=== PATIENT | female | born 1975 | race Caucasian/White ===

== ENCOUNTER 2016-04-17 12:42 | Emergency (ER) | payer BC ==
[~2016-04-17 12:42] MED LIST: AMOXICILLIN875 MG PO; CARVEDILOL3.125 MG PO; CHANTIX 1MG1 MG PO; DIFLUCAN150 M1 PO; FLAGYL500 M1 PO; GLUCOPHAGE; GOOD NEIGHBOR200 M1 PO; GOOD NEIGHBOR500 M2 PO; HYDROCHLOROTHIA1 T15 PO; LISINOPRIL/HCTZ1 TA2 PO; NORCO 325 MG-51 TAB PO; NORVASC 5MG5 MG/TAB PO; OXYCODONE5 M1 PO; PERCOCET 325 MG1 TA2 PO; SEPTRA DS 8001 TAB PO; ULTRAM50 M1 PO
[2016-04-17] MEDS ORDERED: CARVEDILOL12.5 MG PO (14:10)
[2016-04-17] MEDS ORDERED: AMLODIPINE BESY10 MG PO (14:11)
[2016-04-17] MEDS ORDERED: GLUCOPHAGE1000 MG PO (14:11)
[2016-04-17] MEDS ORDERED: VALIUM5 M1 PO (15:39)
[2016-04-17 15:43] VITALS: BP 123/62
== END 2016-04-17 15:55 | disposition home or self-care (01) ==
LOC: ED 12:42
DX: I10 Essential (primary) hypertension (principal); R42 Dizziness and giddiness; F17.210 Nicotine dependence, cigarettes, uncomplicated

== ENCOUNTER → 2016-10-01 | Outpatient (CLI) | payer BC ==
[~2016-10-01] MED LIST changes: +AMLODIPINE BESY10 MG PO; +CARVEDILOL12.5 MG PO; +GLUCOPHAGE1000 MG PO; +LIDOCAINE 5%35.44 GM REC; +LINZESS145 MCG PO; +NEURONTIN300 MG/CAP; +OMEPRAZOLE D/R20 MG PO; +SIMVASTATIN20 M1 PO; +TRAMADOL 50 MG TAB PO; +VALIUM5 M1 PO; +VICTOZA 3-0.6 MG/0.1 SQ
== END ==
LOC: RAD 11:15
DX: R10.32 Left lower quadrant pain (principal); R10.31 Right lower quadrant pain; M46.96 Unspecified inflammatory spondylopathy, lumbar region; M16.0 Bilateral primary osteoarthritis of hip; M51.27 Other intervertebral disc displacement, lumbosacral region

== ENCOUNTER → 2017-10-27 | Outpatient (CLI) | payer BC ==
[2016-12-09 13:02] VITALS: BP 117/80
[2017-10-27 16:54] LABS: BASO # 0.1 (0.02-0.10); EOS # 0.5 (0.04-0.40); EOS % 5.6 % (1.0-5.0); HEMATOCRIT 41.7 % (37.0-47.0); HEMOGLOBIN 14.3 g/dL (12.5-16.0); LYMPH# 3.2 (1.50-4.00); MEAN CELL VOLUME 86 fl (78-100); MEAN CORPUSCULAR HEMOGLOBIN 29 pg (27-31); MEAN CORPUSCULAR HGB CONC 34 g/dL (33-37); MEAN PLATELET VOLUME 10.2 fl (7.4-10.4); MONO # 0.7 (0.20-0.80); NEU # 4.1 (1.40-6.50); PLATELET COUNT 264 K/mm3 (130-400); RED BLOOD COUNT 4.87 M/mm3 (4.10-5.30); RED CELL DISTRIBUTION WIDTH 13.6 % (11.5-14.5); WHITE BLOOD COUNT 8.5 K/mm3 (4.8-10.8)
[2017-10-27 17:00] LABS: ALBUMIN 3.7 g/dL (3.5-5.0); BUN/CREATININE RATIO 27.9 (6.0-26.0); CALCIUM 8.9 mg/dL (8.4-10.2); POTASSIUM 3.4 mmol/L (3.6-5.0); TOTAL BILIRUBIN 0.2 mg/dL (0.2-1.3); TOTAL PROTEIN 7.4 g/dL (6.3-8.2)
== END ==
LOC: LAB 16:33
PROVIDERS: Nurse Practitioner Family
DX: R42 Dizziness and giddiness (principal); R53.83 Other fatigue

== ENCOUNTER 2018-02-11 12:19 | Emergency (ER) | payer BC ==
[~2018-02-11] VITALS: Ht 167.6 cm; Wt 97.7 kg
[2018-02-11] MEDS ORDERED: CARVEDILOL6.25 MG PO (13:13)
[2018-02-11] MEDS ORDERED: CITALOPRAM HBR10 MG PO (13:13)
[2018-02-11] MEDS ORDERED: HCTZ 25MG25 MG PO (13:14)
[2018-02-11] MEDS ORDERED: DIETHYLPROPION PO (13:14)
[2018-02-11] MEDS ORDERED: LISINOPRIL10 MG PO (13:15)
[2018-02-11] MEDS ORDERED: MYRBETRIQ50 MG PO (13:15)
[2018-02-11] MEDS ORDERED: GLUCOPHAGE PO (13:15)
[2018-02-11] MEDS ORDERED: ZOLPIDEM TART10 MG PO (13:16)
[2018-02-11] MEDS ORDERED: EPIPEN 2-PAK1 MG/ML MR (13:52)
[2018-02-11 13:59] VITALS: BP 133/81
[2018-02-11] MEDS ORDERED: PREDNISONE20 M1 PO (14:23)
== END 2018-02-11 13:57 | disposition home or self-care (01) ==
LOC: ED 12:19
DX: T65.891A Toxic effect of other specified substances, accidental (unintentional), initial encounter (principal); L29.8 Other pruritus; R09.89 Other specified symptoms and signs involving the circulatory and respiratory systems; F41.9 Anxiety disorder, unspecified; E11.9 Type 2 diabetes mellitus without complications; Z79.4 Long term (current) use of insulin; I10 Essential (primary) hypertension; K21.9 Gastro-esophageal reflux disease without esophagitis; F17.200 Nicotine dependence, unspecified, uncomplicated; Z79.899 Other long term (current) drug therapy; Z79.84 Long term (current) use of oral hypoglycemic drugs
CPT/HCPCS: J2060; J2930; J7030

== ENCOUNTER → 2018-03-31 | Outpatient (CLI) | payer BC ==
[~2018-03-31] MED LIST changes: +CARVEDILOL6.25 MG PO; +CITALOPRAM HBR10 MG PO; +DIETHYLPROPION PO; +EPIPEN 2-PAK1 MG/ML MR; +GLUCOPHAGE PO; +HCTZ 25MG25 MG PO; +LISINOPRIL10 MG PO; +MYRBETRIQ50 MG PO; +PREDNISONE20 M1 PO; +ZOLPIDEM TART10 MG PO
[2018-03-31 10:12] LABS: BASO # 0.1 (0.02-0.10); EOS # 0.3 (0.04-0.40); EOS % 3.6 % (1.0-5.0); HEMATOCRIT 42.2 % (37.0-47.0); LYMPH# 2.5 (1.50-4.00); MEAN CELL VOLUME 88 fl (78-100); MEAN CORPUSCULAR HEMOGLOBIN 29 pg (27-31); MEAN CORPUSCULAR HGB CONC 33 g/dL (33-37); MEAN PLATELET VOLUME 10.1 fl (7.4-10.4); MONO # 0.7 (0.20-0.80); NEU # 5.1 (1.40-6.50); PLATELET COUNT 256 K/mm3 (130-400); RED CELL DISTRIBUTION WIDTH 13.9 % (11.5-14.5); WHITE BLOOD COUNT 8.6 K/mm3 (4.8-10.8)
[2018-03-31 10:43] LABS: D-DIMER 1.08 mg/L FEU (0.15-0.50)
[2018-03-31 10:56] LABS: ALBUMIN 3.9 g/dL (3.5-5.0); POTASSIUM 3.9 mmol/L (3.6-5.0); TOTAL BILIRUBIN 0.3 mg/dL (0.2-1.3); TOTAL PROTEIN 6.9 g/dL (6.3-8.2)
== END ==
LOC: RAD 09:25
PROVIDERS: Nurse Practitioner Family
DX: M50.323 Other cervical disc degeneration at C6-C7 level (principal); M79.604 Pain in right leg; R20.0 Anesthesia of skin; R20.2 Paresthesia of skin

== ENCOUNTER 2018-04-19 15:00 | Outpatient (RCR) | payer BC | END 2018-04-19 15:30 | disposition home or self-care (01) | LOC: OT 15:00 | DX: G56.01 Carpal tunnel syndrome, right upper limb (principal); M65.841 Other synovitis and tenosynovitis, right hand ==

== ENCOUNTER → 2018-08-16 | Outpatient (CLI) | payer BC | LOC: MAMMO 07:16 | DX: N63.10 Unspecified lump in the right breast, unspecified quadrant (principal) ==